=== PATIENT | female | born 1940 | race Caucasian/White ===

== ENCOUNTER 2016-12-10 11:51 | Inpatient (IN) | payer OTHER ==
--- NOTE | 2016-12-10 12:37 | EDPHY ---
H & P Time Seen by Provider: 12/10/16 12:37 HPI/ROS: CHIEF COMPLAINT: Weakness and altered mental status HISTORY OF PRESENT ILLNESS: Patient had a dental procedure on the 29 of November. She had difficulty tolerating oral oxycodone afterwards. To the decreased oral intake and weakness for the past 8 days. She presents today with difficulty speaking, difficulty grasping words, feeling more shaky, much weaker and barely able to stand up. Symptoms severe. Symptoms are not focal. Not associated with headache or trauma. Symptoms are not better worse with anything. Associated with some anxiety REVIEW OF SYSTEMS: Eye: no change in vision ENT: Dry mouth. Cardiac: no chest pain or syncope Pulmonary: no cough or SOB Abdomen: No vomiting or diarrhea, decreased oral intake. Musculoskeletal: no back pain Skin: Some bruising right jaw unchanged. Neuro: no headache Constitutional: no fever : no urinary symptoms A comprehensive 10 point review of systems is otherwise negative aside from elements mentioned in the history of present illness. PAST MEDICAL HISTORY: Includes new surgery, dental surgery, ablation for some type of supraventricular dysrhythmia Social history: Here with and son General Appearance: Alert and conversant, cooperative. Eyes: No scleral icterus. ENT, Mouth: Dry mucous membranes. Respiratory: Normal respiratory effort, breath sounds equal, lungs are clear to auscultation. Cardiovascular: Regular rate and rhythm. Gastrointestinal: Abdomen is soft and non tender. Neurological: Alert and oriented x3. Normally conversant. 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 Musculoskeletal: No peripheral edema and no joint swelling. Psychiatric: Not agitated. Emergency Department course/MDM: Patient clinically is quite dehydrated but has a sodium of 144. Normal saline [address] noncontrast to evaluate for mass or bleeding. Urinalysis. Chemistry and electrolytes. Admission for IV fluid hydration. Noncontrast head CT shows atrophy per [place], nothing acute at 1:36 p.m. 1350: Straight cath urinalysis attempted twice with no liquid in the bladder, 2nd L IV normal saline hung. Plan for repeat attempt urinalysis after IV fluid hydration. Smoking Status: Never smoked Constitutional: Initial Vital Signs Temperature (C) 36.4 C 12/10/16 11:57 Heart Rate 86 12/10/16 11:57 Respiratory Rate 16 12/10/16 11:57 Blood Pressure 118/80 12/10/16 11:57 O2 Sat (%) 92 12/10/16 11:57 O2 Delivery Mode Room Air Allergies/Adverse Reactions: No Known Allergies Allergy (Unverified 11/25/10 00:43) Home Medications: Medication Instructions Recorded Benazepril HCl 5 mg PO DAILY 11/25/10 Lovastatin 20 mg PO DAILY 11/25/10 metFORMIN HCL [Metformin HCl ER] 500 mg PO BIDMEAL 11/25/10 Calcium Carbonate/Vitamin D3 1 each PO DAILY 12/10/16 [CALCIUM 600 + VIT D TABLET] LORazepam [Ativan (*)] 0.5 mg PO TID PRN 12/10/16 Oxybutynin Chloride Xl [Ditropan 5 mg PO DAILY 12/10/16 Xl 5mg (*)] Medical Decision Making - Diagnostics EKG Interpretation: 12-lead EKG interpreted by me; official reading is in trace master. My interpretation is sinus rhythm with atrial premature complex and low voltage. Rate 80. Imaging Results: Imaging Impressions Head CT 12/10/16 12:46 Impression: 1. No acute intracranial findings. If symptoms persist and clinical suspicion warrants, consider MRI. 2. Diffuse cerebral atrophy with periventricular and subcortical low attenuation consistent with chronic microvascular ischemic gliosis. Findings discussed with ALEXANDRA MINER 12/10/2016 at 13:35. Differential Diagnosis: Differential considered including but not limited to UTI, ischemic stroke, dehydration, other metabolic. Consult/Admit Bed Type: [facility] - Data Points Laboratory Results: Laboratory Results 12/10/16 12:10 12/10/16 12:10 12/10/16 12/10/16 12/10/16 12:27 12:10 12:10 WBC 6.55 10^3/uL 10^3/uL (3.80-9.50) RBC 4.88 10^6/uL 10^6/uL (4.18-5.33) Hgb 13.7 g/dL g/dL (12.6-16.3) POC Hgb 15.3 gm/dL gm/dL (12.6-16.3) Hct 41.9 % % (38.0-47.0) POC Hct 45 % % (38-47) MCV 85.9 fL fL (81.5-99.8) MCH 28.1 pg pg (27.9-34.1) MCHC 32.7 g/dL g/dL (32.4-36.7) RDW 14.1 % % (11.5-15.2) Plt Count 159 10^3/uL 10^3/uL (150-400) MPV 11.5 fL fL (8.7-11.7) Neut % (Auto) 68.2 % % (39.3-74.2) Lymph % (Auto) 15.6 % % (15.0-45.0) [place] % (Auto) 12.5 % % (4.5-13.0) Eos % (Auto) 1.8 % % (0.6-7.6) Baso % (Auto) 0.8 % % (0.3-1.7) Nucleat RBC Rel Count 0.0 % % (0.0-0.2) Absolute Neuts (auto) 4.47 10^3/uL 10^3/uL (1.70-6.50) Absolute Lymphs (auto) 1.02 10^3/uL 10^3/uL (1.00-3.00) Absolute Monos (auto) 0.82 10^3/uL H 10^3/uL (0.30-0.80) Absolute Eos (auto) 0.12 10^3/uL 10^3/uL (0.03-0.40) Absolute Basos (auto) 0.05 10^3/uL 10^3/uL (0.02-0.10) Absolute Nucleated RBC 0.00 10^3/uL 10^3/uL (0-0.01) Immature Gran % 1.1 % % (0.0-1.1) Immature Gran # 0.07 10^3/uL 10^3/uL (0.00-0.10) POC Sodium 141 mEq/L mEq/L (134-144) Sodium 139 mEq/L mEq/L (134-144) POC Potassium 4.4 mEq/L mEq/L (3.3-5.0) Potassium 4.8 mEq/L mEq/L (3.5-5.2) POC Chloride 98 mEq/L mEq/L (97-110) Chloride 99 mEq/L mEq/L (97-110) Carbon Dioxide 27 mEq/l mEq/l (22-31) Anion Gap 13 mEq/L mEq/L (8-16) POC BUN 30 mg/dL H mg/dL (7-23) BUN 29 mg/dL H mg/dL (7-23) Creatinine 1.0 mg/dL mg/dL (0.6-1.0) POC Creatinine 0.9 mg/dL mg/dL (0.6-1.0) Estimated GFR 54 Glucose 142 mg/dL H mg/dL (70-100) POC Glucose 144 mg/dL H mg/dL (70-100) Calcium 10.0 mg/dL mg/dL (8.5-10.4) Troponin I < 0.012 ng/mL ng/mL (0-0.034) Medications Given: Discontinued Medications Sodium Chloride (Ns) 1,000 mls @ 0 mls/hr IV ONCE ONE PRN Reason: Wide Open Stop: 12/10/16 12:47 Last Admin: 12/10/16 12:49 Dose: 1,000 mls Sodium Chloride (Ns) 1,000 mls @ 0 mls/hr IV ONCE ONE PRN Reason: Wide Open Stop: 12/10/16 13:52 Last Admin: 12/10/16 13:56 Dose: 1,000 mls Point of Care Test Results: 12/10/16 12:27 POC Sodium 141 POC Potassium 4.4 POC Chloride 98 POC BUN 30 H POC Creatinine 0.9 POC Glucose 144 H Departure - Departure Disposition: [facility] Inpatient Acute Clinical Impression: Weakness, Dehydration Condition: Fair
--- NOTE | 2016-12-10 12:45 | CPEKG ---
Heart Rate: 80 RR Interval: 750 P-R Interval: 148 QRSD Interval: 64 QT Interval: 368 QTC Interval: 425 P [place]: 85 QRS [place]: 20 T Wave [place]: 55 EKG Severity - ABNORMAL ECG - EKG Impression: SINUS RHYTHM EKG Impression: MULTIPLE ATRIAL PREMATURE COMPLEXES EKG Impression: LEFT ATRIAL ABNORMALITY EKG Impression: LOW VOLTAGE THROUGHOUT Electronically Signed By: Ezequiel Quarles 10-Dec-2016 14:42:56
[2016-12-10] MEDS ORDERED: NS 1,000 ML IV ONE ×2 (12:46→13:51)
[2016-12-10 12:57] LABS: % IMMATURE GRANULYOCYTES 1.1 % (0.0-1.1); ABSOLUTE IMMATURE GRANULOCYTES 0.07 10^3/uL (0.00-0.10); ADD DIFF? NO; ADD MORPH? NO; ADD SCAN? NO; ATYPICAL LYMPHOCYTE FLAG 0 (0-99); FRAGMENT RBC FLAG 0 (0-99); HEMATOCRIT 41.9 % (38.0-47.0); HEMOGLOBIN 13.7 g/dL (12.6-16.3); LEFT SHIFT FLG 0 (0-99); LIPEMIA HEMOLYSIS FLAG 80 (0-99); MEAN CELL HEMOGLOBIN 28.1 pg (27.9-34.1); MEAN CELL HEMOGLOBIN CONCENTR. 32.7 g/dL (32.4-36.7); MEAN CELL VOLUME 85.9 fL (81.5-99.8); MEAN PLATELET VOLUME 11.5 fL (8.7-11.7); PLATELET CLUMPS FLAG 10 (0-99); PLATELET COUNT 159 10^3/uL (150-400); RED BLOOD CELL COUNT 4.88 10^6/uL (4.18-5.33); RED CELL DISTRIBUTION WIDTH 14.1 % (11.5-15.2)
[2016-12-10 13:53] LABS: ANION GAP 13 mEq/L (8-16); CARBON DIOXIDE 27 mEq/l (22-31); CHLORIDE 99 mEq/L (97-110); GLOMERULAR FILTRATION RATE 54; GLUCOSE 142 mg/dL (70-100); POTASSIUM 4.8 mEq/L (3.5-5.2); SODIUM 139 mEq/L (134-144)
[2016-12-10 14:04] LABS: TROPONIN I < 0.012 ng/mL (0-0.034)
[2016-12-10] MEDS ORDERED: ONDANSETRON 4 MG/2 ML VIAL IVP PRN (14:09)
[2016-12-10] MEDS ORDERED: ACETAMINOPHEN 325 MG TAB PO PRN (14:09)
[2016-12-10] MEDS ORDERED: ONDANSETRON DISINTEGRATING 4 MG TAB PO PRN (14:09)
--- NOTE | 2016-12-10 15:34 | GHP ---
[f rep st] HISTORY AND PHYSICAL DATE OF ADMISSION: 12/10/2016 CHIEF COMPLAINT: Weakness. HISTORY OF PRESENT ILLNESS: The patient is a 76-year-old female, who had dental work done approxima ann-marie 2 weeks ago, and has not been able to recover since. She had a cap removed with decaying tooth excised. After her dental intervention, she was placed on amoxicillin and had a negative response to narcotic pain medication. She has followed up with her dentist, who has not identified any signs of infection, and has discontinued her antibiotic therapy. She presents to the emergency room toda y after being seen by her primary care physician in the office with complaints of weakness as well a s difficulty ambulating and dry mouth. The patient denies any fever. She does state that she has a bdominal pain with some cramping and diarrhea. She also states that she has no appetite and has no desire to eat or drink anything. She denies any chest pain, shortness of breath or dyspnea. She fernandez s had no episodes of emesis or other specific issues. REVIEW OF SYSTEMS: Comprehensive 10-point review of systems is negative other than noted in the HPI . PAST MEDICAL HISTORY: Notable for atrial fibrillation with ablation in the past, recent dental work , and COPD. SOCIAL HISTORY: Patient lives with her . They live independently. She denies any tobacco o r alcohol use. PAST SURGICAL HISTORY: Ablation. PHYSICAL EXAM: GENERAL: The patient is alert and oriented, in no acute distress. VITAL SIGNS: Af ebrile at 36.4, pulse is 87, respiratory rate 16, blood pressure is 118/80. She is saturating 92% o n room air. HEENT: Normocephalic. Mucosal membranes are dry. Pupils equal, round, reactive to li ght. Oropharynx is erythematous with pasty, white coating. RESPIRATORY: Lungs are decreased in th e bases bilaterally. No rhonchi or wheezes noted. CARDIOVASCULAR: S1, S2. No gallop or murmur ap preciated. GASTROINTESTINAL: Abdomen: Bowel sounds are positive. Soft and nontender. There is n o guarding or rigidity noted. NEUROLOGIC: The patient is focally intact. There is no noted abnorm ality. SKIN: Without rashes or lesions. Warm and dry to the touch. EXTREMITIES: Within normal l imits. There is no clubbing or cyanosis appreciated. PSYCHIATRIC: The patient is intact and appro priate. ALLERGIES: None. HOME MEDICATIONS: Have not been reconciled by Pharmacy to this point. LABORATORY EVALUATION: CBC and metabolic panel are essentially benign with a noted BUN of 30. RADIOLOGICAL STUDIES: CT of the head: No acute intracranial findings or abnormalities, noting diff use atrophy. ASSESSMENT AND PLAN: This is a 76-year-old woman who has complaints of weakness since dental interv ention. She is being admitted for: 1. Dehydration. During this hospital course, we will rehydrate her and follow her laboratory evalu ations. The patient has no desire to eat or drink anything at this time. I am evaluating her for p ossible flu as well as Clostridium difficile secondary to recent antibiotic therapy. We will provid e her some oral nystatin, as she does appear to have a fungal process in her oral cavity. 2. Weakness. This is likely secondary to the patient's multiple acute problems, essentially dehydr ation. We will continue physical therapy and occupational therapy. 3. Altered mental status. The patient is able to answer me appropriately with no identifiable issu es at this time. CT of her head is stable and within normal limits. 4. Diarrhea. This is in the setting of recent antibiotic therapy. We will check for Clostridium d ifficile and treat appropriately if identified. DISPOSITION: The patient will be admitted to observation status. If she requires further hospitali zation, she can be transitioned to inpatient. She is FULL CODE and will be initiated on Lovenox for DVT prophylaxis. I reviewed the patient with Dr. Ezequiel Quarles, of the emergency room. Further interv ention will be done as warranted during this patient's hospitalization. /[id number]/MODL
[2016-12-10] MEDS: NYSTATIN SUSP 500000 UNIT/5 ML UDCUP PO SCH ×2 (17:20→20:46)
[2016-12-10 20:11] LABS: COLOR YELLOW; LEUKOCYTE ESTERASE,URINE 1+ (NEGATIVE); NITRITE,URINE NEGATIVE (NEGATIVE)
[2016-12-10 20:37] LABS: BACTERIA TRACE /hpf (NONE SEEN); MUCUS TRACE /lpf (NONE-1+); WBC,URINE 15-25 /hpf (0-3)
[2016-12-10] MEDS ORDERED: traZODone 50 MG TAB PO PRN (21:35)
[2016-12-10] MEDS: NS 1,000 ML IV SCH (22:40)
[2016-12-11 04:48] LABS: % IMMATURE GRANULYOCYTES 2.1 % (0.0-1.1); ABSOLUTE IMMATURE GRANULOCYTES 0.11 10^3/uL (0.00-0.10); ADD DIFF? NO; ADD MORPH? NO; ADD SCAN? NO; ATYPICAL LYMPHOCYTE FLAG 30 (0-99); FRAGMENT RBC FLAG 0 (0-99); HEMATOCRIT 35.7 % (38.0-47.0); HEMOGLOBIN 11.4 g/dL (12.6-16.3); LEFT SHIFT FLG 10 (0-99); LIPEMIA HEMOLYSIS FLAG 80 (0-99); MEAN CELL HEMOGLOBIN CONCENTR. 31.9 g/dL (32.4-36.7); MEAN CELL VOLUME 87.7 fL (81.5-99.8); MEAN PLATELET VOLUME 11.7 fL (8.7-11.7); PLATELET CLUMPS FLAG 0 (0-99); PLATELET COUNT 124 10^3/uL (150-400); RED BLOOD CELL COUNT 4.07 10^6/uL (4.18-5.33); RED CELL DISTRIBUTION WIDTH 14.1 % (11.5-15.2)
[2016-12-11 05:06] LABS: ANION GAP 9 mEq/L (8-16); CALCIUM 8.1 mg/dL (8.5-10.4); CARBON DIOXIDE 24 mEq/l (22-31); CHLORIDE 109 mEq/L (97-110); CREATININE 0.7 mg/dL (0.6-1.0); GLOMERULAR FILTRATION RATE > 60; GLUCOSE 105 mg/dL (70-100); SODIUM 142 mEq/L (134-144)
[2016-12-11] MEDS: NYSTATIN SUSP 500000 UNIT/5 ML UDCUP PO SCH ×4 (05:23→20:50)
[2016-12-11] MEDS ORDERED: NON-FORMULARY NEW DRUG (Lovastatin [Lovastatin] 20 MG) PO SCH (09:00)
[2016-12-11] MEDS ORDERED: NON-FORMULARY NEW DRUG (Calcium Carbonate/Vitamin D3 [Calcium 600 + Vit D Tablet] 1 EACH) PO SCH (09:00)
[2016-12-11] MEDS ORDERED: CALCIUM CARB W/VIT D 500 MG TAB PO SCH (09:00)
[2016-12-11] MEDS ORDERED: BENAZEPRIL HCL 5 MG PO SCH (09:00)
[2016-12-11] MEDS ORDERED: OXYBUTYNIN 5 MG EXT REL TAB PO SCH (09:00)
[2016-12-11] MEDS: BENAZEPRIL HCL 10 MG TAB PO SCH (10:13)
[2016-12-11] MEDS: OXYBUTYNIN 5 MG EXT REL TAB PO SCH (10:14)
[2016-12-11] MEDS: PRAVASTATIN SODIUM 20 MG TAB PO SCH (10:14)
[2016-12-11] MEDS: ENOXAPARIN 30 MG/0.3 ML SYR SC SCH (10:14)
[2016-12-11] MEDS: CALCIUM CARB W/VIT D 500 MG TAB PO SCH (10:14)
--- NOTE | 2016-12-11 10:31 | HOSPPROG ---
Hospitalist Progress Note Assessment/Plan: DIAGNOSES: -Acute dehydration, multifactorial with poor intake and diarrhea at home -Acute diarrhea appears to possibly be resolving but will watch further here -Pyuria with no symptoms of bladder or urethral irritation, relation to her presenting symptom uncertain -Acute generalized weakness, likely due to the above at this time she feels minimally improved and is still really too weak to be safe at home, will require ongoing hydration and further management and evaluation, so will and that changing to inpatient PLANS: -Continue IV fluids for now -Recheck urinalysis and urine culture, determine any potential action based on results and how she is improving or not -Continue to follow for any signs of further diarrhea -PT and OT eval, fall risk precautions SUBJECTIVE: still feels quite weak this morning No pain or discomfort OBJECTIVE Vitals reviewed: stable without fever Exam: alert oriented skin warm dry color ok resps not labored lungs clear BSs heart regular abd soft nondistended nontender, bowel sounds present limbs warm, no edema iv site ok Objective: Vital Signs Temp Pulse Resp BP Pulse Ox 36.7 C 59 L 18 133/69 H 92 12/11/16 07:59 12/11/16 07:59 12/11/16 07:59 12/11/16 07:59 12/11/16 07:59 Microbiology 12/10/16 14:27 Respiratory Panel (PCR) - Final Nasal, Sinus - [place] Viral Transport No Organism Detected Laboratory Results 12/11/16 04:16 12/11/16 04:16 12/10/16 12/11/16 12/12/16 06:59 06:59 06:59 Intake Total 4799 Balance 4799 ICD10 Worksheet Patient Problems: Problems Problem Status Onset Dehydration Acute Weakness Acute
[2016-12-11 14:19] LABS: COLOR YELLOW; LEUKOCYTE ESTERASE,URINE NEGATIVE (NEGATIVE); NITRITE,URINE POSITIVE (NEGATIVE)
[2016-12-11 14:50] LABS: BACTERIA 3+ /hpf (NONE SEEN); MUCUS 4+ /lpf (NONE-1+)
[2016-12-11] MEDS: NS 1,000 ML IV SCH (16:40)
[2016-12-11] MEDS ORDERED: NON-FORMULARY NEW DRUG (Metformin Hcl [Metformin Hcl Er] 500 MG) PO SCH (18:00)
[2016-12-11] MEDS: metFORMIN SR 500 MG TAB PO SCH (18:45)
[2016-12-12] MEDS: NS 1,000 ML IV SCH (05:44)
[2016-12-12] MEDS: NYSTATIN SUSP 500000 UNIT/5 ML UDCUP PO SCH ×2 (05:44→11:18)
[2016-12-12 08:09] VITALS: BP 162/70; PULSE 59; RESP 18; TEMP 97.5
[2016-12-12] MEDS: BENAZEPRIL HCL 10 MG TAB PO SCH (08:18)
[2016-12-12] MEDS: metFORMIN SR 500 MG TAB PO SCH (08:18)
[2016-12-12] MEDS: ENOXAPARIN 30 MG/0.3 ML SYR SC SCH (08:18)
[2016-12-12] MEDS: PRAVASTATIN SODIUM 20 MG TAB PO SCH (08:18)
[2016-12-12] MEDS: CALCIUM CARB W/VIT D 500 MG TAB PO SCH (08:18)
[2016-12-12] MEDS: OXYBUTYNIN 5 MG EXT REL TAB PO SCH (08:18)
[2016-12-12] MEDS ORDERED: CALCIUM CARB W/VIT D 500 MG TAB PO SCH (09:00)
[2016-12-12 14:11] VITALS: O2SAT 94
--- NOTE | 2016-12-12 15:24 | PDDCSUM ---
Discharge Summary Discharge Summary: Discharge Diagnoses: -Acute dehydration, multifactorial with poor intake and diarrhea at home -Acute diarrhea appears to possibly be resolving but will watch further here -Pyuria with no symptoms of bladder or urethral irritation, relation to her presenting symptom uncertain -Acute generalized weakness, likely due to the above Complications: none Hospital Course: This patient presented with 3-4 days of diarrhea without bleeding pain or fever. She was dehydrated and felt very weak, had gait instability from this. She was hydrated with IV fluids and improved back to her baseline. She had no further diarrhea here. C diff was neg. She ate well. She is now safe with ambulation and transfers She is stable for DC to go home. Medication changes: none Follow up: with fire investigator next week
[2016-12-13] MEDS ORDERED: ENOXAPARIN 40 MG/0.4 ML SYR SC SCH (09:00)
== END 2016-12-12 16:18 | disposition home or self-care (01) | DRG 641 ==
LOC: INTOOBSV 13:50 → F3E 15:37 → OBSVTOIN 12-11 10:31
PROVIDERS: ADMIT Internal Medicine; ATTEND Internal Medicine
DX: E86.0 Dehydration (principal); R19.7 Diarrhea, unspecified; N39.0 Urinary tract infection, site not specified
CPT/HCPCS: 82947-QW; 97161-GP; G0378; G8978-GP-CI; G8979-GP-CH; J1650

== ENCOUNTER → 2017-04-04 | Outpatient (CLI) | payer OTHER, MEDICARE | LOC: FIMAGING 13:07 | PROVIDERS: ATTEND Family Medicine | DX: Z12.31 Encounter for screening mammogram for malignant neoplasm of breast (principal) | CPT/HCPCS: G0202 ==

== ENCOUNTER 2017-04-21 10:56 | Emergency (ER) | payer OTHER, MEDICARE ==
[2017-04-21 11:07] VITALS: RESP 18
[2017-04-21 12:13] LABS: ADD DIFF? YES; ADD MORPH? NO; ADD SCAN? NO; ATYPICAL LYMPHOCYTE FLAG 0 (0-99); FRAGMENT RBC FLAG 0 (0-99); HEMATOCRIT 41.9 % (38.0-47.0); HEMOGLOBIN 13.6 g/dL (12.6-16.3); LEFT SHIFT FLG 0 (0-99); LIPEMIA HEMOLYSIS FLAG 80 (0-99); MEAN CELL HEMOGLOBIN 27.9 pg (27.9-34.1); MEAN CELL HEMOGLOBIN CONCENTR. 32.5 g/dL (32.4-36.7); MEAN CELL VOLUME 85.9 fL (81.5-99.8); MEAN PLATELET VOLUME 11.9 fL (8.7-11.7); PLATELET CLUMPS FLAG 20 (0-99); PLATELET COUNT 150 10^3/uL (150-400); RED BLOOD CELL COUNT 4.88 10^6/uL (4.18-5.33); RED CELL DISTRIBUTION WIDTH 14.9 % (11.5-15.2)
[2017-04-21 12:21] LABS: ANION GAP 15 mEq/L (8-16); CALCIUM 9.9 mg/dL (8.5-10.4); CARBON DIOXIDE 26 mEq/l (22-31); CHLORIDE 96 mEq/L (97-110); CREATININE 0.8 mg/dL (0.6-1.0); GLOMERULAR FILTRATION RATE > 60; GLUCOSE 218 mg/dL (70-100); POTASSIUM 4.7 mEq/L (3.5-5.2); SODIUM 137 mEq/L (134-144)
[2017-04-21] MEDS ORDERED: ONDANSETRON 4 MG/2 ML VIAL IVP ONE (12:35)
--- NOTE | 2017-04-21 12:35 | EDPHY ---
H & P Time Seen by Provider: 04/21/17 12:15 HPI/ROS: Chief complaint. weakness HPI. 76-year-old female had wisdom tooth removed on Saturday (6 days ago). 4 days ago she developed decreased appetite and weakness. Nausea without vomiting. No abdominal pain though feels her abdomen slightly distended. She had 1 day of achiness in her legs 4 days ago which has resolved. There was no swelling. She was prescribed amoxicillin after her dental procedure and took this for 2 days and then stop. She has no dental pain. She has generalized weakness and shakiness. She is afraid of falling as she is so weak. notes that time she has been in coherent. She has no headache. No visual symptoms. She has not had fever. She had no bowel movement since her surgery though then had a bowel movement prior to coming to the emergency department. No urinary symptoms though decreased urination ROS Constitutional. Generalized weakness Eyes. no problems with vision ENT. no sore throat, no nasal drainage Cardiovascular. no chest pain Respiratory. no shortness of breath, no cough Abdominal. Nausea and decreased appetite . no problems urinating MS. no calf pain/swelling, no neck/back pain, no joint pain Skin. no rash Lymph. no swollen glands Neuro. Difficulty walking secondary to weakness Past Medical/Surgical History: Past medical history significant for ablation, dental surgery, diabetes, COPD, hypertension, dyslipidemia, anxiety Social History: , nonsmoker, no alcohol Smoking Status: Never smoked Physical Exam: General Appearance: Alert well-developed female mild distress vital signs are stable Eyes: Pupils equal and round no pallor or injection. ENT, mucous membranes are dry. No evidence for dental infection Respiratory: There are no retractions, lungs are clear to auscultation. Cardiovascular: Regular rate and rhythm. Gastrointestinal: Abdomen is soft and nontender, no masses, bowel sounds normal. Neurological: Awake and alert, sensory and motor exams grossly normal. Skin: Warm and dry, no rashes. Musculoskeletal: Neck is supple nontender. Extremities symmetrical, full range of motion. Psychiatric: Patient is oriented X 3, there is no agitation. Constitutional: Initial Vital Signs Temperature (C) 36.5 C 04/21/17 11:00 Heart Rate 80 04/21/17 11:00 Respiratory Rate 18 04/21/17 11:00 Blood Pressure 111/76 04/21/17 11:00 O2 Sat (%) 94 04/21/17 11:00 Allergies/Adverse Reactions: No Known Allergies Allergy (Verified 04/21/17 11:03) Home Medications: Medication Instructions Recorded Benazepril HCl 5 mg PO DAILY 11/25/10 Lovastatin 20 mg PO DAILY 11/25/10 metFORMIN HCL [Metformin HCl ER] 500 mg PO BIDMEAL 11/25/10 Calcium Carbonate/Vitamin D3 1 each PO DAILY 12/10/16 [CALCIUM 600 + VIT D TABLET] Oxybutynin Chloride Xl [Ditropan 5 mg PO DAILY 12/10/16 Xl 5mg (*)] Ondansetron Odt [Zofran Odt] 4 mg PO Q4PRN PRN #4 tab 04/21/17 Medical Decision Making - Diagnostics EKG Interpretation: EKG interpreted by me shows normal sinus rhythm normal interval and axis. QRS is normal there is no significant ST elevation or depression. There is no arrhythmia. The rate is 74 Procedures: IV normal saline. Zofran for nausea ED Course/Re-evaluation: Re-evaluation 2:05 p.m.--patient is stable On re-evaluation 245 patient has had juice and crackers and feels well. She has no complaints. She is feeling stronger. She feels like she would like to go home a. The patient and I discussed laboratory EKG evaluation. We discussed treatment plan including criteria for return and importance of follow-up and further evaluation. They expressed understanding and agreement Differential Diagnosis: Apparent dehydration. I considered acute coronary syndrome, electrolyte abnormalities as well - Data Points Laboratory Results: Laboratory Results 04/21/17 11:22 04/21/17 11:22 04/21/17 04/21/17 04/21/17 12:22 11:22 11:22 WBC 5.76 10^3/uL 10^3/uL (3.80-9.50) RBC 4.88 10^6/uL 10^6/uL (4.18-5.33) Hgb 13.6 g/dL g/dL (12.6-16.3) Hct 41.9 % % (38.0-47.0) MCV 85.9 fL fL (81.5-99.8) MCH 27.9 pg pg (27.9-34.1) MCHC 32.5 g/dL g/dL (32.4-36.7) RDW 14.9 % % (11.5-15.2) Plt Count 150 10^3/uL 10^3/uL (150-400) MPV 11.9 fL H fL (8.7-11.7) Neut % (Auto) Not Reported Lymph % (Auto) Not Reported [place] % (Auto) Not Reported Eos % (Auto) Not Reported Baso % (Auto) Not Reported Nucleat RBC Rel Count 0.0 % % (0.0-0.2) Absolute Neuts (auto) Not Reported Absolute Lymphs (auto) Not Reported Absolute Monos (auto) Not Reported Absolute Eos (auto) Not Reported Absolute Basos (auto) Not Reported Absolute Nucleated RBC 0.00 10^3/uL 10^3/uL (0-0.01) Immature Gran % Not Reported Seg Neutrophils % 53 % % Lymphocytes % 23 % % Monocytes % 21 % % Eosinophils % 3 % % Immature Gran # Not Reported Absolute Seg Neuts 3.05 10^/uL 10^/uL (1.70-6.50) Absolute Lymphocytes 1.32 10^3/uL 10^3/uL (1.00-3.00) Absolute Monocytes 1.21 10^3/uL H 10^3/uL (0.30-0.80) Absolute Eosinophils 0.17 10^3/uL 10^3/uL (0.03-0.40) RBC/WBC/PLT Morphology NORMAL (NORMAL) Platelet Estimate ADEQUATE (ADEQ) Smear Review By Pending Sodium 137 mEq/L mEq/L (134-144) Potassium 4.7 mEq/L mEq/L (3.5-5.2) Chloride 96 mEq/L L mEq/L (97-110) Carbon Dioxide 26 mEq/l mEq/l (22-31) Anion Gap 15 mEq/L mEq/L (8-16) BUN 26 mg/dL H mg/dL (7-23) Creatinine 0.8 mg/dL mg/dL (0.6-1.0) Estimated GFR > 60 Glucose 218 mg/dL H mg/dL (70-100) Calcium 9.9 mg/dL mg/dL (8.5-10.4) Lipase 141 IU/L IU/L (23-300) Medications Given: Discontinued Medications Sodium Chloride (Ns) 1,000 mls @ 0 mls/hr IV ONCE ONE PRN Reason: Wide Open Stop: 04/21/17 13:06 Last Admin: 04/21/17 13:06 Dose: 1,000 mls Ondansetron HCl (Zofran) 4 mg IVP EDNOW ONE Stop: 04/21/17 12:36 Last Admin: 04/21/17 13:03 Dose: 4 mg Departure - Departure Disposition: Home, Routine, Self-Care Clinical Impression: Weakness, Dehydration Condition: Good Instructions: Dehydration (ED) Additional Instructions: Drink plenty of fluids and stay hydrated. If nauseated may use Zofran a medication for nausea and vomiting. Afterwards frequent, small sips fluids and then gradual diet advancement. Return for worsening symptoms. Recheck in 1-2 days if not improving Referrals: ISABELLA WOOTEN [Primary Care Provider] - 2-3 days, if not improved Prescriptions: Ondansetron Odt [Zofran Odt] 4 mg PO Q4PRN PRN #4 tab PRN Reason: Nausea/Vomiting, Use 1st
[2017-04-21] MEDS ORDERED: NS 1,000 ML IV ONE (13:05)
--- NOTE | 2017-04-21 13:08 | CPEKG ---
Heart Rate: 74 RR Interval: 811 P-R Interval: 148 QRSD Interval: 64 QT Interval: 380 QTC Interval: 422 P [place]: 81 QRS [place]: 4 T Wave [place]: 46 EKG Severity - OTHERWISE NORMAL ECG - EKG Impression: SINUS RHYTHM EKG Impression: LOW VOLTAGE IN FRONTAL LEADS Electronically Signed By: Jhonatan Pandya 21-Apr-2017 15:32:00
[2017-04-21 13:26] LABS: PLATELET ESTIMATE ADEQUATE (ADEQ)
[2017-04-21 15:04] VITALS: BP 112/77; PULSE 78; TEMP 98.1; O2SAT 95
== END 2017-04-21 15:04 | disposition home or self-care (01) ==
DX: R53.1 Weakness (principal); E86.0 Dehydration; E11.9 Type 2 diabetes mellitus without complications; J44.9 Chronic obstructive pulmonary disease, unspecified; I10 Essential (primary) hypertension; E86.9 Volume depletion, unspecified; Z79.84 Long term (current) use of oral hypoglycemic drugs
CPT/HCPCS: 93005; 96361; 96374; 99284; J2405

== ENCOUNTER → 2017-05-08 | Outpatient (CLI) | payer OTHER, MEDICARE | LOC: FIMAGING 12:27 | PROVIDERS: ATTEND Family Medicine | DX: Z13.820 Encounter for screening for osteoporosis (principal); Z78.0 Asymptomatic menopausal state ==

== ENCOUNTER → 2017-08-14 | Outpatient (CLI) | payer OTHER, MEDICARE | LOC: FIMAGING 15:04 | PROVIDERS: ATTEND Internal Medicine Pulmonary Disease | DX: J42 Unspecified chronic bronchitis (principal); I51.7 Cardiomegaly; M41.84 Other forms of scoliosis, thoracic region ==

== ENCOUNTER → 2017-10-02 | Outpatient (CLI) | payer OTHER, MEDICARE ==
[~2017-10-02] MED LIST: IOPAMIDOL (ISOVUE-300) 100 ML BTL ONE
== END ==
LOC: FIMAGING 13:38
PROVIDERS: ATTEND Internal Medicine Pulmonary Disease
DX: J45.909 Unspecified asthma, uncomplicated (principal); R63.4 Abnormal weight loss; M51.36 Other intervertebral disc degeneration, lumbar region
CPT/HCPCS: 71260; 74177; Q9967

== ENCOUNTER 2017-11-15 18:53 | Inpatient (IN) | payer OTHER, MEDICARE ==
[2017-11-15] MEDS ORDERED: methylPREDNISolone SOD SUCC 125 MG/2 ML VIAL IVP ONE (19:44)
[2017-11-15] MEDS ORDERED: IPRATROPIUM/ALBUTEROL 3 ML DEYVIAL IH ONE (19:44)
[2017-11-15] MEDS ORDERED: NS 500 ML IV ONE (19:44)
[2017-11-15] MEDS ORDERED: NALOXONE HCL 0.4 MG/ML INJ IVP ONE (19:44)
--- NOTE | 2017-11-15 19:54 | EDPHY ---
H & P Time Seen by Provider: 11/15/17 19:07 HPI/ROS: HPI Altered mental status. 77-year-old female by ambulance from home. This patient just underwent a colonoscopy and GI of the [facility] at 2:30 p.m.. She had some issues with anesthesia including nausea postprocedure. According to family who are present in the room she was able to ambulate and was sent home with them. They got her home and up to bed. She has a history of COPD. They checked on her and she was not responding to their questions. They checked her pulse oximetry and she was reportedly 48%. EMS was called. She was administered Narcan after IV placement. She apparently perked up and was conversive during transport to the emergency department. Family states she was prescribed oxycodone awhile back for dental work. They are not sure if she took any of this on arrival home. The patient will not say if she took any medications when she got home. The patient otherwise denies any complaints. ROS: Constitutional: No fever, no chills. As above. Eyes: No discharge. No changes in vision. ENT: No sore throat. No nasal congestion or rhinorrhea. Respiratory: No cough. No shortness of breath. Cardiac: No chest pain, no palpitations. Gastrointestinal: No abdominal pain, no vomiting, no diarrhea. Genitourinary: No hematuria. No dysuria or increased frequency with urination. Musculoskeletal: No back pain. No neck pain. No myalgias or arthralgias. Skin: No rashes. Neurological: No headache. No focal weakness or altered sensation. Past medical history: Cardiac ablation, dental surgery, type 2 diabetes, COPD, hyperlipidemia, hypertension, anxiety. Social history: Former smoker. Denies alcohol. Here with family. Physical Exam: General Appearance: Sleepy but arousable. She is not in distress. This patient is responding to questions in short yes or no answers. This patient appears well-hydrated and well-nourished. Eyes: Pupils equal, small and round and reactive to light at 2-1 mm, no pallor or injection. No lid edema, erythema or injection. ENT, Mouth: Mucous membranes are moist. The pharyngeal tissues are unremarkable. No edema or swelling. No asymmetry suggestive of abscess. No erythema or exudates. No tongue lacerations or abrasions. Respiratory: There are no retractions, lungs are diminished bilaterally. No tachypnea. Cardiovascular: Irregular, irregular rhythm. No murmur. Gastrointestinal: Abdomen is soft and nontender, no masses, bowel sounds normal. No focal tenderness at McBurney's point. No Morrell sign. Neurological: Motor sensory function is grossly intact. Cranial nerves are normal. Skin: Warm and dry, no rashes. Musculoskeletal: Neck is supple and nontender. Extremities are symmetrical. All joints range without pain or impingement. Psychiatric: No agitation. No depression. Database: EKG: EKG time is 8:51 p.m.; EKG shows a narrow complex normal sinus rhythm with a ventricular rate of 82. The LA, QRS, QT intervals are within normal limits. There are no ST-T wave changes indicative of ischemic or injury pattern. No evidence of right heart strain. Interpreted by me. Imaging: Chest x-ray AP portable; the cardiac mediastinal silhouette appears unremarkable. No evidence of infiltrate or pneumothorax. Chronic interstitial pulmonary fibrosis. No acute cardiopulmonary disease process noted. Interpreted by me. CT scan of head without contrast; atrophy noted. No bleed. No other acute pathology. Results discussed with staff radiologist Dr. Cj Torrez. Procedures: Emergency department course: Vital signs reviewed. Pulse oximetry on room air 76%. On 4 L she comes up to 96-98%. IV placed. She was placed on a rush seater. She will be given 1 mg of IV Narcan. I suspect a extended-release narcotic agent. EKG obtained and reviewed by myself. She will be given 500 cc of IV normal saline over the next hour. She will be given nebulized Atrovent and albuterol as well as 125 mg of IV Solu-Medrol. 8:15 p.m., patient re-evaluated. She had been given 1 mg of IV Narcan with minimal response. She is still sleepy. She is receiving her nebulizers right now. CT scan of head without contrast pending. 9:05 p.m., patient re-evaluated. She is sleeping but arousable. She is on 4 L of nasal cannula oxygen. Pulse oximetry currently 96%. Results of imaging as well as blood work discussed with family. Plan for admission for observation reviewed. I spoke with the on-call hospitalist Dr. Gillis. She accepts this patient for admission. The patient was admitted to the step-down unit in stable condition Differential Diagnosis: The differential diagnosis on this patient includes but is not limited to narcotic overdose, alcohol intoxication, anesthesia reaction, COPD exacerbation. This represents a partial list of diagnoses considered. These considerations are based on history, physical exam, past history, reassessment and diagnostic testing. Smoking Status: Never smoked Constitutional: Initial Vital Signs O2 Sat (%) 98 11/15/17 18:53 O2 Delivery Mode Room Air O2 (L/minute) 4 Allergies/Adverse Reactions: No Known Allergies Allergy (Verified 11/15/17 19:03) Home Medications: Medication Instructions Recorded Oxybutynin Chloride Xl [Ditropan 5 mg PO DAILY 12/10/16 Xl 5mg (*)] Benazepril HCl 5 mg PO DAILY 11/15/17 Fluticasone/Salmeter 250/50Mcg 1 puffs IH BID 11/15/17 [Advair 250/50 (*)] LORazepam [Ativan (*)] 0.5 mg PO DAILY PRN 11/15/17 Lovastatin 10mg Tablet 10 mg PO DAILY 11/15/17 metFORMIN SR [Glucophage XR 500 mg 1,000 mg PO DAILY@1800 11/15/17 (*)] Medical Decision Making - Data Points Laboratory Results: Laboratory Results 11/15/17 19:50 11/15/17 19:50 Medications Given: Albuterol/Ipratropium (Duoneb) 3 ml IH QID [facility] Stop: 05/14/18 20:59 Last Admin: 11/17/17 11:36 Dose: 3 ml Budesonide (Budesonide 0.5mg/2ml Neb) 0.5 mg IH BID [facility] Stop: 05/15/18 11:29 Last Admin: 11/17/17 11:36 Dose: 0.5 mg Enoxaparin Sodium (Lovenox) 40 mg SC DAILY [facility] Stop: 05/15/18 08:59 Last Admin: 11/17/17 09:09 Dose: Not Given Insulin Human Lispro (Humalog Lispro) 0 unit SC ACHS SURINDER PRN Reason: Protocol Stop: 05/15/18 11:29 Last Admin: 11/17/17 13:55 Dose: Not Given Metformin HCl (Glucophage Xr) 1,000 mg PO DAILY@1800 [facility] Stop: 05/15/18 17:59 Last Admin: 11/16/17 17:47 Dose: 1,000 mg Pravastatin Sodium (Pravachol) 10 mg PO DAILY [facility] Stop: 05/16/18 08:59 Last Admin: 11/17/17 12:36 Dose: 10 mg Discontinued Medications Albuterol/Ipratropium (Duoneb) 6 ml IH EDNOW ONE Stop: 11/15/17 19:45 Last Admin: 11/15/17 20:02 Dose: 6 ml Sodium Chloride (Ns) 500 mls @ 1,000 mls/hr IV EDNOW ONE PRN Reason: Protocol Stop: 11/15/17 20:13 Last Admin: 11/15/17 19:58 Dose: 500 mls Sodium Chloride (Ns) 500 mls @ 0 mls/hr IV ONCE ONE PRN Reason: Wide Open Stop: 11/16/17 20:10 Last Admin: 11/16/17 20:20 Dose: 500 mls Methylprednisolone Sodium Succinate (Solu-Medrol) 125 mg IVP EDNOW ONE Stop: 11/15/17 19:45 Last Admin: 11/15/17 19:59 Dose: 125 mg Naloxone HCl (Narcan) 1 mg IVP EDNOW ONE Stop: 11/15/17 19:45 Last Admin: 11/15/17 19:59 Dose: 1 mg Fluticasone/Salmeterol (Advair) 1 puffs IH BID [facility] Stop: 05/15/18 08:59 Last Admin: 11/16/17 09:55 Dose: Not Given Departure - Departure Disposition: [facility] Acute Clinical Impression: Altered mental status, Hypoxia
[2017-11-15 20:15] LABS: PLATELET COUNT 109 10^3/uL (150-400)
--- NOTE | 2017-11-15 20:16 | CPEKG ---
Heart Rate: 84 RR Interval: 714 P-R Interval: 164 QRSD Interval: 66 QT Interval: 400 QTC Interval: 473 P [place]: 73 QRS [place]: -30 T Wave [place]: -4 EKG Severity - ABNORMAL ECG - EKG Impression: SINUS RHYTHM EKG Impression: LEFT ATRIAL ABNORMALITY EKG Impression: LEFT AXIS DEVIATION EKG Impression: LOW VOLTAGE IN FRONTAL LEADS EKG Impression: BORDERLINE T ABNORMALITIES, INFERIOR LEADS Electronically Signed By: Elvin Ellsworth 15-Nov-2017 22:46:57
[2017-11-15] MEDS ORDERED: ONDANSETRON DISINTEGRATING 4 MG TAB PO PRN (20:53)
[2017-11-15] MEDS ORDERED: ACETAMINOPHEN 325 MG TAB PO PRN (20:53)
[2017-11-15] MEDS ORDERED: ALBUTEROL 3 ML DEYVIAL IH PRN (20:53)
[2017-11-15] MEDS ORDERED: ONDANSETRON 4 MG/2 ML VIAL IVP PRN (20:53)
--- NOTE | 2017-11-15 23:13 | GHP ---
[f rep st] HISTORY AND PHYSICAL DATE OF ADMISSION: 11/15/2017 CHIEF COMPLAINT: Hypoxia. 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 Patient underwent the anesthesia associated with these procedures, had a prolonged recovery phase, and was di scharged from postprocedural care with an oxygen saturation at 87% and severe nausea, for which she w as treated with 3 doses of various medications, either IV or rectal. Patient returned home, laid tika n to take a nap, and appeared to be unresponsive to family. They checked her oxygen saturation and i t was in the 60s. They checked her monitor and confirmed that it was functioning properly. Therefor e, called EMS for evaluation. She was given Narcan in the field and had some response and then becam e somnolent again. She was transported to the emergency department for evaluation. In the ED, nickolas kimbrough was again treated with Narcan with some response, just not sustained, and was then initiated on ox ygen supplementation. During my discussion with the family, they report that she was quite anxious f or her procedures today, that there is a possibility she may have used her p.r.n. anxiety medication prior to the procedure. They could not confirm or deny. Reported that she was having the procedures due to ongoing difficulty maintaining weight in the outpatient setting. Denied any problems with di arrhea. Denied any complaints of shortness of breath preprocedure. She had not eating significantly prior as she had been prepping. Patient was not experiencing fevers, chills, did not have any new c ough, any new sick contacts. Had not complained of any urinary issue and had not had any changes in her outpatient medication regimen recently. PAST MEDICAL HISTORY: 1. COPD, should likely be on oxygen but has thus refused. 2. Diabetes type 2. 3. Hypertension. 4. Hyperlipidemia. SOCIAL HISTORY: Negative for tobacco, alcohol, or illicit drugs. FAMILY HISTORY: Positive for diabetes. REVIEW OF SYSTEMS: A 10-point review of systems is negative with the exception of that reported in t he HPI. PHYSICAL EXAMINATION: VITAL SIGNS: Blood pressure 135/74, heart rate 100, respiratory rate 12, satu rating 73% on room air, 96% on 3 L, 36.7. GENERAL: This is a very thin-appearing, elderly female ly ing flat in bed, minimally arousable. HEENT: Notable for dry mucous membranes. Eyes negative for a ny icterus. CARDIAC: Patient is regular rate and rhythm. PULMONARY: She is clear to auscultation bilaterally. No wheezing is appreciated. GASTROINTESTINAL: Abdomen is thin. Bowel sounds are norm al. She is nontender to palpation. MUSCULOSKELETAL: Negative for any lower extremity edema. SKIN: Negative for any rashes. NEUROLOGIC: She is very somnolent and difficult to arouse. LABORATORY DATA: White count 11.09, hematocrit 43.7, platelets 109. Creatinine 0.7. Troponin less than 0.012. Blood glucose at 250. Chest x-ray, which I personally reviewed and interpreted, shows n o acute infiltrates or edema. CT head, which I personally reviewed and interpreted, shows no acute i ntracranial findings. ASSESSMENT AND PLAN: This is a 77-year-old female, presenting post esophagogastroduodenoscopy, colon oscopy, with somnolence and hypoxia. 1. Acute encephalopathy. Suspect this may be medications related to the anesthesia she received plu s or minus self use of anxiolytics prior. Since the patient is oxygenating well and the rest of her workup is benign, will avoid using additional Narcan at this time and simply provide supportive care overnight and allow her to wake up on her own. If her oxygen saturations do drop, then will initiat e re-dosing of Narcan. 2. Acute hypoxic respiratory failure. Again, suspect this is more related to the encephalopathy. I believe the patient's baseline oxygen levels run low related to her chronic obstructive lung disease . She is not wheezing on exam. I do not think she is having an exacerbation. Will simply continue her home medications and follow her clinical progress overnight. 3. Prophylaxis with Lovenox. 4. Diet regular when she wakes up. DISPOSITION: I expect less than 2 midnights as patient's encephalopathy improves with supportive car e. I have discussed the case with the emergency room physician. Patient will be triaged to the [facility]-surgical floor for care. /[id number]/MODL
[2017-11-15] MEDS: IPRATROPIUM/ALBUTEROL 3 ML DEYVIAL IH SCH (23:23)
[2017-11-16] MEDS: IPRATROPIUM/ALBUTEROL 3 ML DEYVIAL IH SCH ×4 (05:22→21:05)
[2017-11-16 06:24] LABS: PLATELET COUNT 97 10^3/uL (150-400)
[2017-11-16] MEDS ORDERED: FLUTICASONE/SALMETER 250/50MCG DISKUS IH SCH (09:00)
[2017-11-16] MEDS: ENOXAPARIN 40 MG/0.4 ML SYR SC SCH (09:27)
[2017-11-16] MEDS ORDERED: D50W 25 GM/50 ML SYR IVP PRN (11:30)
--- NOTE | 2017-11-16 11:30 | HOSPPROG ---
Hospitalist Progress Note Assessment/Plan: Acute on chronic hypoxemic respiratory failure - note h/o COPD, baseline sats 87 -88% per family and she has historically refused O2. Her hypoxemia is likely hastened by sedation from extra bzd use prior to EGD/c-scope and anesthesia. Family notes a high stress week during which she may have been taking extra valium doses. -cont O2, wean as able -likely needs home O2 if she agrees -avoid sedating meds today COPD - no e/o acute exacerbation. CXR pers reviewed / interp- possible pulmonary fibrosis. Unable to coordinate breathing for Advair. -d/c advair for now and add pulmicort nebs Leukocytosis - suspect 2/2 high dose IV solumedrol given in ED. No s/sx's of infection. CXR not suggestive of PNA. -trend Type 2 DM - bg's 200's on arrival. -resume metformin -send a1c -SSI for glycemic control Hypertension - holding shaina given lowish BP's Hyperlipidemia - cont statin DVT PPLX - Lovenox Dispo - change to inpt due to ongoing somnolence and hypoxemia. Ok to transfer to med/surg. Will need PT/OT evals. Subjective: Pt is somnolent, though easily awakens to verbal stimuli and interacts appropriately. She is not sure if she took extra valium, but and son suspect she is taking extra doses due to increased stress this week. No fevers/chills. No cough, wheezing, CP or SOB. Objective: Vital Signs Temp Pulse Resp BP Pulse Ox 36.8 C 93 18 110/58 L 100 11/16/17 07:01 11/16/17 07:01 11/16/17 07:01 11/16/17 09:23 11/16/17 09:23 Laboratory Results 11/16/17 04:45 11/16/17 04:45 11/15/17 11/16/17 11/17/17 05:59 05:59 05:59 Intake Total 0 Output Total 0 Balance 0 - Physical Exam Constitutional: no apparent distress Eyes: PERRL Ears, Nose, Mouth, Throat: moist mucous membranes Cardiovascular: regular rate and rhythym Respiratory: no respiratory distress, reduced air movement Gastrointestinal: normoactive bowel sounds, soft, non-tender abdomen Skin: warm Musculoskeletal: full muscle strength Neurologic: other (appears sedated, though neuro exam non-focal) ICD10 Worksheet Patient Problems: Problems Problem Status Onset Altered mental status Acute Hypoxia Acute
[2017-11-16] MEDS: BUDESONIDE 0.5 MG/2 ML AMPUL.NEB IH SCH ×2 (11:44→21:05)
--- NOTE | 2017-11-16 12:32 | PDMN ---
Medical Necessity Medical necessity: C/M review: est. > 2 MN LOS for eval and TX of acute on chronic hypoxemic respiratory failure - patient desatted to 70's on room air during MD evaluation 11/16/2017, hypoxemia likely hastened by sedation from extra benzodiazepines prior to outpatient EGD / c-scope and anesthesia (done prior to this admission) - patient family notes high stress week during which patient may have been taking extra Valium doses prior to this admission, leukocytosis, somnolence, requiring transfer from SDU to med/surg bed, ongoing Duonebs, Pulmiicort nebs, pulse oximetry, supplemental O2, comorbid COPD - no evidence of acute exacerbation, baseline 87-88% sats per patient family and patient has historically refused O2, type 2 diabetes, hypertension, hyperlipidemia per 11/16/2017 Hospitalist progress note.
[2017-11-16] MEDS: INSULIN LISPRO 100 UNIT/ML SC SCH ×3 (14:10→21:27)
[2017-11-16] MEDS: metFORMIN SR 500 MG TAB PO SCH (17:47)
--- NOTE | 2017-11-16 18:00 | ASMTCMCOM ---
CM Note CM Note Notes: 11/16/2017 Case Management Note Pt admitted for hypoxia with history of COPD. Pt has supportive family. Case Management d/c poc: to be determined. Case Management to follow. Date Signed: 11/16/2017 06:00 PM Electronically Signed By:Jena Jeong RN
[2017-11-16] MEDS ORDERED: NS 500 ML IV ONE (20:09)
[2017-11-17 05:39] LABS: PLATELET COUNT 88 10^3/uL (150-400)
[2017-11-17] MEDS: IPRATROPIUM/ALBUTEROL 3 ML DEYVIAL IH SCH ×4 (06:13→21:38)
[2017-11-17] MEDS ORDERED: LOVASTATIN 10 MG PO SCH (09:00)
[2017-11-17] MEDS: INSULIN LISPRO 100 UNIT/ML SC SCH ×4 (09:09→19:42)
[2017-11-17] MEDS: ENOXAPARIN 40 MG/0.4 ML SYR SC SCH (09:09)
[2017-11-17] MEDS: BUDESONIDE 0.5 MG/2 ML AMPUL.NEB IH SCH ×2 (11:36→21:38)
[2017-11-17] MEDS: PRAVASTATIN SODIUM 10 MG TAB PO SCH (12:36)
[2017-11-17 14:06] LABS: PLATELET COUNT 74 10^3/uL (150-400)
--- NOTE | 2017-11-17 14:59 | HOSPPROG ---
Hospitalist Progress Note Assessment/Plan: 77 yo female with h/o chronic pulmonary fibrosis and COPD admitted with acute encephalopathy and hypoxemia after outpt elective EGD / colonoscopy. Acute encephalopathy - resolved. Thought 2/2 over-sedation with Ativan use noted prior to EGD/c-scope. Mentation back to baseline. She does not chronically use bzd's and thus I'm not worried abt withdrawal. Acute on chronic hypoxemic respiratory failure - h/o COPD and pulmonary fibrosis (lifetime non-smoker), baseline sats 87-88% per family and she has historically refused O2. Followed by Dr. Karson Pascual. Her hypoxemia was likely hastened by sedation from extra bzd use prior to EGD/c-scope and anesthesia. -cont O2, wean as able -she now agrees to home O2 -avoid sedating meds Leukocytosis - WBC 11k --> 37k. No infectious symptoms. Abdominal exam benign. CXR neg for PNA and no resp symptoms. UA relatively bland. Query stress response. She did receive 125 mg IV solumedrol in ED on admission. Lactate normal. PCT low risk. -cont to observe off atbx as no focal infection identified at this point -BCx's and UCx ngtd, follow -no e/o free air on initial upright CXR, but will check abdominal upright to r/o perf given recent EGD/c-scope -cont to follow and consider hematology consult in am if wbc's continue to rise Thrombocytopenia - plts trending down, unclear etiology. -as above, consider heme consult if downward trend continues COPD - no e/o acute exacerbation. CXR pers reviewed / interp- changes c/w chronic pulmonary fibrosis. Unable to coordinate breathing for Advair. -cont duonebs -d/c advair for now and add pulmicort nebs -reviewed recent outpt CT which showed progressive pulmonary fibrosis Type 2 DM - bg's 200's on arrival. -resume metformin -send a1c -SSI for glycemic control Hypertension - holding shaina given lowish BP's in setting of poor oral intake. Responsive to small NS bolus. BP's better today. Hyperlipidemia - cont statin DVT PPLX - Lovenox held with plts <100 Dispo - cont inpt for ongoing evaluation of leukocytosis. PT/OT evals. Subjective: Pt is more awake today. No fevers / chills. No CP, SOB, abdominal pain, N/V, dysuria, frequency or urgency. No headaches or vision changes. Mentation seems back to baseline per . Eating better. Objective: Vital Signs Temp Pulse Resp BP Pulse Ox 37.1 C 81 17 112/52 L 91 L 11/17/17 12:00 11/17/17 12:00 11/17/17 12:00 11/17/17 12:00 11/17/17 12:00 Laboratory Results 11/17/17 13:30 11/16/17 04:45 11/16/17 11/17/17 11/18/17 05:59 05:59 05:59 Intake Total 0 750 240 Output Total 0 Balance 0 750 240 - Physical Exam Constitutional: no apparent distress Eyes: PERRL Ears, Nose, Mouth, Throat: moist mucous membranes Cardiovascular: regular rate and rhythym Respiratory: no respiratory distress, clear to auscultation Gastrointestinal: normoactive bowel sounds, soft, non-tender abdomen Skin: warm Musculoskeletal: full muscle strength Neurologic: AAOx3 Psychiatric: interacting appropriately ICD10 Worksheet Patient Problems: Problems Problem Status Onset Altered mental status Acute Hypoxia Acute
--- NOTE | 2017-11-17 15:18 | ASMTCMCOM ---
CM Note CM Note Notes: CM spoke with pt and her re PT/OT recommendations for SNF d/c or 24 hr supervision. They were very receptive to SNF as is concerned about her weakness and how she would function at home. Discussed SNF options - [facility] first choice, [facility] second. Sent referrals via [facility]. PASRR done. Pt has some anxiety for which she takes prn lorazepam however does not have an anxiety d/o dx. CM will continue to follow. Date Signed: 11/17/2017 03:17 PM Electronically Signed By:GARCIA Moran
[2017-11-17] MEDS: metFORMIN SR 500 MG TAB PO SCH (18:11)
[2017-11-18 05:32] LABS: PLATELET COUNT 76 10^3/uL (150-400)
[2017-11-18] MEDS: IPRATROPIUM/ALBUTEROL 3 ML DEYVIAL IH SCH ×5 (06:11→21:26)
[2017-11-18] MEDS: ENOXAPARIN 40 MG/0.4 ML SYR SC SCH (09:50)
[2017-11-18] MEDS: INSULIN LISPRO 100 UNIT/ML SC SCH ×4 (09:50→21:07)
[2017-11-18] MEDS: PRAVASTATIN SODIUM 10 MG TAB PO SCH (09:51)
--- NOTE | 2017-11-18 10:22 | HOSPPROG ---
Hospitalist Progress Note Assessment/Plan: 77 yo female with h/o chronic pulmonary fibrosis and COPD admitted with acute encephalopathy and hypoxemia after outpt elective EGD / colonoscopy. Today is my first encounter with the patient. *acute encephalopathy - said she is close to her baseling -2/2 over-sedation w use of Ativan prior to EGD *acute on chronic hypoxemic respiratory failure -h/o COPD and pulm fibrosis -followed by Dr Pascual -baseline O2 sats 87-88% *Leukocytosis -trending down -received solumedrol in ED -lactate stable -abd xray shows moderate distention -concerned her wbc cont to be elevated, will get a CT of abd/pelvis to r/o any etiology (hold Metformin) -reviewed her previous labs and wbc has been stable -loose stools, but very few, ? any possibility for c diff *thrombocytopenia *htn -ACEI has been held due to low bp's *DM 2 -A1C is 7.7 *COPD -no exacerbatioon *HLD -statin *Plan: get a CT scan to r/o anything concerning, will get repeat labs in a.m. If wbc cont to be high, and ongoing low platelets, will ask hematology to see. hold metformin due to getting dye. Subjective: Kanika has no pain, but hasn't had a bowel movement since her procedure that has been normal. Objective: Vital Signs Temp Pulse Resp BP Pulse Ox 36.6 C 75 16 121/62 H 98 11/18/17 07:31 11/18/17 07:31 11/18/17 07:31 11/18/17 07:31 11/18/17 07:31 Laboratory Results 11/18/17 04:45 11/16/17 04:45 11/17/17 11/18/17 11/19/17 05:59 05:59 05:59 Intake Total 750 840 Balance 750 840 - Physical Exam Constitutional: no apparent distress, other (thin) Eyes: PERRL Ears, Nose, Mouth, Throat: hearing normal Cardiovascular: regular rate and rhythym Respiratory: no respiratory distress Gastrointestinal: distension (slight), No tenderness Skin: warm Neurologic: AAOx3 Psychiatric: interacting appropriately, not anxious ICD10 Worksheet Patient Problems: Problems Problem Status Onset Altered mental status Acute Hypoxia Acute
[2017-11-18] MEDS: BUDESONIDE 0.5 MG/2 ML AMPUL.NEB IH SCH ×2 (10:31→21:26)
[2017-11-18] MEDS ORDERED: IOPAMIDOL (ISOVUE-300) 100 ML BTL ONE (14:32)
--- NOTE | 2017-11-18 15:37 | ASMTCMCOM ---
CM Note CM Note Notes: CM met w/ pt and for dispo planning. [facility] have said yes. [facility] have said no. CM communicated this to pt and . Pt and are hoping for improvements and to go home independently. CM to follow. Plan: TBD Date Signed: 11/18/2017 03:36 PM Electronically Signed By:JOSE DAVID Douglass
[2017-11-19] MEDS: IPRATROPIUM/ALBUTEROL 3 ML DEYVIAL IH SCH ×3 (04:33→16:44)
[2017-11-19 06:29] LABS: PLATELET COUNT 88 10^3/uL (150-400)
--- NOTE | 2017-11-19 08:48 | HOSPPROG ---
Hospitalist Progress Note Assessment/Plan: 77 yo female with h/o chronic pulmonary fibrosis and COPD admitted with acute encephalopathy and hypoxemia after outpt elective EGD / colonoscopy. *acute encephalopathy - said she is close to her baseling -2/2 over-sedation w use of Ativan prior to EGD *acute on chronic hypoxemic respiratory failure -h/o COPD and pulm fibrosis -followed by Dr Pascual -baseline O2 sats 87-88%, today were at 75% -will get a chest xray *Leukocytosis, much better -CT showed nothing acute -received solumedrol in ED -lactate stable *thrombocytopenia -f/u with her PCP *htn -ACEI has been held due to low bp's *DM 2 -A1C is 7.7 *COPD -no exacerbation -except on O2 *HLD -statin *Plan: get a chest xray to evaluate her lung status, cont hold metformin for a total of 48 hours after receiving dye Subjective: Joycelyn fells good today,no shortness of breath. Objective: Vital Signs Temp Pulse Resp BP Pulse Ox 36.6 C 73 14 111/55 L 98 11/19/17 07:44 11/19/17 07:44 11/19/17 07:44 11/19/17 07:44 11/19/17 07:44 Laboratory Results 11/19/17 05:05 11/19/17 05:05 11/18/17 11/19/17 11/20/17 05:59 05:59 05:59 Intake Total 840 Balance 840 - Physical Exam Constitutional: chronically ill appearing, other (thin) Eyes: PERRL Ears, Nose, Mouth, Throat: hearing normal Cardiovascular: regular rate and rhythym Respiratory: no respiratory distress, reduced air movement Gastrointestinal: normoactive bowel sounds Skin: warm Musculoskeletal: full muscle strength Neurologic: AAOx3 Psychiatric: interacting appropriately ICD10 Worksheet Patient Problems: Problems Problem Status Onset Altered mental status Acute Hypoxia Acute
[2017-11-19] MEDS: PRAVASTATIN SODIUM 10 MG TAB PO SCH (09:01)
[2017-11-19] MEDS: INSULIN LISPRO 100 UNIT/ML SC SCH ×2 (09:07→12:48)
[2017-11-19] MEDS: BUDESONIDE 0.5 MG/2 ML AMPUL.NEB IH SCH (10:38)
[2017-11-19 11:12] VITALS: BP 122/62
--- NOTE | 2017-11-19 13:03 | PDHOMEO2F ---
Home Oxygen Face to Face Home Orders: I certify that a physician or a nurse practitioner or physician's tax accounting assistant has had a ndag-rz-ueir encounter with this patient on the date of this order due to the diagnosis listed, which relates to the primary reason the patient requires home oxygen. Alternative treatments have been tried, or considered, and deemed ineffective. It is anticipated that supplemental oxygen will result in improvement with treatment. Home oxygen qualifying diagnosis: copd SpO2 on room air (%): 85% Frequency of home oxygen needed: continuous Home oxygen liters per minute: 1-2 Home oxygen delivery device: nasal cannula Concentrator: Yes E-tanks for mobility and back up: Yes If ordering portable O2, is the patient mobile in the home?: Yes I certify that, based on these findings, the home oxygen is medically necessary for this patient for the following length of time. Length of time home oxygen needed: 99 years
--- NOTE | 2017-11-19 13:30 | PDIAF ---
- Diagnosis Diagnosis: acute encephalopathy, acute hypoxemia, copd Code Status: Full Code - Medication Management Discharge Medications: Medications to Continue on Transfer Oxybutynin Chloride Xl [Ditropan Xl 5mg (*)] 5 mg PO DAILY 12/10/16 [Last Taken 11/15/17] Benazepril HCl 5 mg PO DAILY 11/15/17 [Last Taken 11/15/17] Fluticasone/Salmeter 250/50Mcg [Advair 250/50 (*)] 1 puffs IH BID 11/15/17 [ Last Taken 11/15/17 09:00] Lovastatin 10mg Tablet 10 mg PO DAILY 11/15/17 [Last Taken 11/15/17] metFORMIN SR [Glucophage XR 500 mg (*)] 1,000 mg PO DAILY@1800 11/15/17 [Last Taken 11/14/17] Acetaminophen [Tylenol 325mg (*)] 650 mg PO Q4HRS PRN tab 11/19/17 [Last Taken Unknown] Discharge Medications: Refer to the Discharge Home Medication list for PRN reason. - Orders Services needed: Home Care, Physical Therapy, Occupational Therapy, Speech Language Pathologist Home Care Face to Face: I certify that this patient was under my care and that I had the required asom-bq-psli encounter meeting the encounter requirements on the discharge day. My findings support the fact that the patient is homebound as defined in Home Care Face to Face Continued: [facility] Chapter 7 Medicare Benefits Manual 30.1.1 , The condition of the patient is such that there exists a normal inability to leave home and consequently, leaving home would require a considerable and taxing effort. Oxygen: 1-2 liters Diet Recommendation: ADA 2200 consistent carb Diet Texture: Regular Texture Diet Additional Instructions: stop taking all Ativan, lorazepam hold the benazepril until you follow up with your PCP, your blood pressure has been low and we have not been giving it to you hold the Metformin, can restart on November 21 . You received dye during the CT scan so you need to wait on this medication because it affects your kidneys. your platelets have been low, you need a repeat CBC in one week with your primary care provider; this needs further w/u wear oxygen around the clock follow up with DR Pascual Home care to check in on you / check blood pressure daily - Follow Up Care Current Providers and Referrals: ISABELLA WOOTEN [Primary Care Provider] - As per Instructions Karson Pascual MD [Medical Doctor] -
--- NOTE | 2017-11-19 13:55 | GDS ---
[f rep st] DISCHARGE SUMMARY DISCHARGE DIAGNOSIS: 1. Acute encephalopathy. 2. Acute on chronic hypoxemic respiratory failure. 3. Leukocytosis. 4. Thrombocytopenia. 5. Hypertension. 6. Diabetes type 2. 7. Chronic obstructive pulmonary disease. 8. Hyperlipidemia. BRIEF HISTORY: Briefly, the patient is a 77-year-old female with history of chronic pulmonary fibrosis and COPD. She was admitted with acute encephalopathy and hypoxemia after she received an outpatient elective EGD and colonoscopy. It was noted that she had taken Ativan for a few days prior to the procedure to help her get through this. She became acutely confused and quite hypoxic after the procedure. She was admitted for further care. During her stay, her white blood cell count increased significantly. She did receive a 1-time dose of IV steroids. Because she had an endoscopy and colonoscopy, a CT of the abdomen and pelvis was performed to rule out any cause of the leukocytosis. This showed nothing acute. She is feeling markedly better today. She has been hypoxic more so than her baseline. Her baseline oxygen levels are in the mid 80s. She will discharge home on oxygen and follow up with Dr. Karson Pascual. HOSPITAL COURSE: 1. Acute encephalopathy. Her said she is back to her baseline. I suspect this is over-sedation from use of Ativan prior to the EGD. 2. Acute on chronic hypoxemic respiratory failure. She has a history of COPD and pulmonary fibrosis. She is followed by Dr. Pascual. A chest x-ray was performed today that showed nothing acute. 3. Leukocytosis. This is much better. Her lactate is stable. Her blood cultures grew out nothing. 4. Thrombocytopenia. This is new for her. Further follow up with her PCP. 5. Hypertension. Her DELBERT inhibitor has been held due to low blood pressures. Recommending she continue holding this. 6. Diabetes type 2. A1c is 7.7. She is on metformin. 7. COPD. She does not have an exacerbation. 8. Hyperlipidemia, on statin therapy. DISCHARGE CONDITION: Stable. Blood pressure is 122/62, heart rate is 72, respiratory rate is 16, O2 saturations on 1 L are 95%, on room air are 84%. Temperature is 36.9 Celsius. MEDICATIONS AT DISCHARGE: Please see the EMR. DISCHARGE INSTRUCTIONS: 1. Hold the metformin for 2 more days, she received contrast. 2. Stop taking Ativan. 3. Hold the DELBERT inhibitor until she follows up with her primary care provider. Her blood pressure has been low. 4. To get her platelets further evaluated. 5. Oxygen around the clock. 6. Further follow up with Dr. Pascual. TIME SPENT: Greater than 30 minutes discharging and coordinating her care. /[id number]/MODL MTDD
--- NOTE | 2017-11-19 14:51 | PDIAF ---
- Diagnosis Diagnosis: acute encephalopathy, acute hypoxemia, copd Code Status: Full Code - Medication Management Discharge Medications: Medications to Continue on Transfer Oxybutynin Chloride Xl [Ditropan Xl 5mg (*)] 5 mg PO DAILY 12/10/16 [Last Taken 11/15/17] Benazepril HCl 5 mg PO DAILY 11/15/17 [Last Taken 11/15/17] Fluticasone/Salmeter 250/50Mcg [Advair 250/50 (*)] 1 puffs IH BID 11/15/17 [ Last Taken 11/15/17 09:00] Lovastatin 10mg Tablet 10 mg PO DAILY 11/15/17 [Last Taken 11/15/17] metFORMIN SR [Glucophage XR 500 mg (*)] 1,000 mg PO DAILY@1800 11/15/17 [Last Taken 11/14/17] Acetaminophen [Tylenol 325mg (*)] 650 mg PO Q4HRS PRN tab 11/19/17 [Last Taken Unknown] Discharge Medications: Refer to the Discharge Home Medication list for PRN reason. - Orders Services needed: Home Care, Physical Therapy Home Care Face to Face: I certify that this patient was under my care and that I had the required vyct-st-uelf encounter meeting the encounter requirements on the discharge day. My findings support the fact that the patient is homebound as defined in Home Care Face to Face Continued: CMS Chapter 7 Medicare Benefits Manual 30.1.1 , The condition of the patient is such that there exists a normal inability to leave home and consequently, leaving home would require a considerable and taxing effort. Oxygen: 1-2 liters Diet Recommendation: ADA 2200 consistent carb Diet Texture: Regular Texture Diet Additional Instructions: stop taking all Ativan, lorazepam hold the benazepril until you follow up with your PCP, your blood pressure has been low and we have not been giving it to you hold the Metformin, can restart on November 21 . You received dye during the CT scan so you need to wait on this medication because it affects your kidneys. your platelets have been low, you need a repeat CBC in one week with your primary care provider; this needs further w/u wear oxygen around the clock follow up with DR Pascual Home care to check in on you / check blood pressure daily - Follow Up Care Current Providers and Referrals: ISABELLA WOOTEN [Primary Care Provider] - As per Instructions Karson Pascual MD [Medical Doctor] -
--- NOTE | 2017-11-20 13:42 | ASDISCHSUM ---
Discharge Information Plan Status:Home with Home Health Medically Cleared to Leave:11/19/2017 Discharge Date:11/19/2017 04:50 PM CM D/C Disposition: ADT D/C Disposition:Home Health Service Projected Discharge Date:11/19/2017 11:00 AM Transportation at D/C: Discharge Delay Reason: Follow-Up Date:11/19/2017 11:00 AM Discharge Slot: Final Diagnosis: Placement Information Referral Type:*Jail/SNF Referral ID:[id number] Provider Name: Address 1: Phone Number: Address 2: Fax Number: City: Selection Factors: State: Referral Type:*Home Health Care Services Referral ID:[id number] Provider Name:[facility] Address 1:[address] [place] [address] Address 2: City:[place] Selection Factors: State:[place] Patient Contact Information Contact Name:VEL Relationship: Address:[address] Work Phone: City:[place] Alternate Phone: State/Zip Code:[place] [address] Email: Financial Information Financial Class:Medicare Primary Plan Desc:MEDICARE INPATIENT Primary Plan Number:[id number] Secondary Plan Desc:[employer]/MDR SUPPLEMENT Secondary Plan Number:[id number] Assessment Information [facility] CM Progress Note CM Note CM Note Notes: 11/16/2017 Case Management Note Pt admitted for hypoxia with history of COPD. Pt has supportive family. Case Management d/c poc: to be determined. Case Management to follow. Date Signed: 11/16/2017 06:00 PM Electronically Signed By:Jena Jeong RN BC CM Progress Note CM Note CM Note Notes: CM spoke with pt and her re PT/OT recommendations for SNF d/c or 24 hr supervision. They were very receptive to SNF as is concerned about her weakness and how she would function at home. Discussed SNF options - [facility] first choice, [facility] second. Sent referrals via [employer]. PASRR done. Pt has some anxiety for which she takes prn lorazepam however does not have an anxiety d/o dx. CM will continue to follow. Date Signed: 11/17/2017 03:17 PM Electronically Signed By:GARCIA Moran [facility] CM Progress Note CM Note CM Note Notes: CM met w/ pt and for dispo planning. [facility] have said yes. [facility] have said no. CM communicated this to pt and . Pt and are hoping for improvements and to go home independently. CM to follow. Plan: TBD Date Signed: 11/18/2017 03:36 PM Electronically Signed By:JOSE DAVID Douglass Case Management Discharge Plan Note Case Management Discharge Discharge Order Complete? Answers: Yes Patient to Obtain Answers: via [facility] Transportation Arranged Answers: Family/Friends EMTALA Complete Answers: No Case Management Transport Answers: No Form Complete Faxed Final Orders Answers: Yes Agency/Facility Transfer Answers: Yes Report Printed & Faxed to Receiving Agency Family Notified Answers: Yes Discharge Comments Notes: CM spoke w/ JEREMIAS Tavares and [facility] regarding d/c POC. CM met w/ pt and for dispo planning. Pt and are not interested in going to a SNF. Pt is being discharged today. Pt and are agreeable to having PT only. Pt and are not interested in other services at this time. Pt and would like a referral made to [facility]. [facility] is able to accept. CM confirmed address and phone number. provided [facility]anco w/ phone number to give report. CM available for changes. Plan: [facility], PT Date Signed: 11/19/2017 03:00 PM Electronically Signed By:JOSE DAVID Douglass Intervention Information Intervention Type:*IM-Signed Date of Service:11/19/2017 01:51 PM Patient Type:Inpatient Staff Member:Kelsea Ayers Hours: Discipline: Severity: Comment:
== END 2017-11-19 16:50 | disposition home health service (06) | DRG 917 ==
LOC: EDUNIT# → OBSVTOIN 20:53 → F2N 22:24 → F3E 11-16 18:14
PROVIDERS: ADMIT Hospitalist; ATTEND Hospitalist
DX: T42.4X1A Poisoning by benzodiazepines, accidental (unintentional), initial encounter (principal); G93.49 Other encephalopathy; J96.21 Acute and chronic respiratory failure with hypoxia; J84.10 Pulmonary fibrosis, unspecified; J44.9 Chronic obstructive pulmonary disease, unspecified; I10 Essential (primary) hypertension; E11.9 Type 2 diabetes mellitus without complications; E78.5 Hyperlipidemia, unspecified; D69.6 Thrombocytopenia, unspecified; Z87.891 Personal history of nicotine dependence; Z79.84 Long term (current) use of oral hypoglycemic drugs
CPT/HCPCS: 80305; 96374; 97116-GP; 97162-GP; 97166-GO; 97530-GP; 97535-GO; G0378; G0480; G8978-GP-CJ; G8979-GP-CI; G8987-GO-CJ; G8988-GO-CI; J1650; J1815; J2310; J2930; J7626; Q9967

== ENCOUNTER → 2018-03-25 | Outpatient (CLI) | payer OTHER, MEDICARE | LOC: FIMAGING 12:59 | PROVIDERS: ATTEND Internal Medicine Pulmonary Disease | DX: R91.8 Other nonspecific abnormal finding of lung field (principal); M40.209 Unspecified kyphosis, site unspecified; I25.83 Coronary atherosclerosis due to lipid rich plaque ==

== ENCOUNTER → 2018-04-08 | Outpatient (CLI) | payer OTHER, MEDICARE | LOC: FIMAGING 13:24 | PROVIDERS: ATTEND Family Medicine | DX: Z12.31 Encounter for screening mammogram for malignant neoplasm of breast (principal) ==